=== PATIENT | female | born 1965 ===

== ENCOUNTER → 2018-10-22 20:54 | Outpatient (REF) | payer BC, SELFPAY ==
[2018-10-22 21:21] LABS: HEMOLYSIS < 15 (0-50)
[2018-10-22 21:24] LABS: Add Manual Diff / Slide Review NO; Basophils Absolute Auto 100 /uL (0-100); Basophils Percent Auto 1.6 % (0-2); Eosinophils Absolute Auto 100 /uL (0-450); Eosinophils Percent Auto 1.3 % (2-4); Hematocrit 32.9 % (36-46); Hemoglobin 9.9 g/dL (12.0-16.0); Lymphocytes Absolute Auto 1000 /uL (1100-4500); Mean Corpuscular Hemoglobin 17.3 PG (26-34); Mean Corpuscular Volume 57.7 fL (80-100); Monocytes Absolute Auto 400 /uL (0-900); Monocytes Percent Auto 6.4 % (3-14); Neutrophils Absolute Auto 4700 /uL (1500-7000); Neutrophils Percent Auto 74.7 % (50-75); Platelet Count 242 X10^3/uL (150-400); Red Blood Cell Count 5.71 X10^6/uL (4.0-5.2); Red Cell Distribution Width 18.1 % (11.6-14.8); White Blood Cell Count 6.4 X10^3/uL (4.5-11.0)
[2018-10-22 21:27] LABS: Alanine Aminotransferase 25 IU/L (9-52); Albumin Globulin Ratio 1.3 (1.0-2.8); Alkaline Phosphatase 64 U/L (38-126); Aspartate Aminotransferase 26 IU/L (14-36); BUN Creatinine Ratio 12.5 (6-22); Bilirubin Total 0.4 mg/dL (0.2-1.3); Blood Urea Nitrogen 10 mg/dL (7-17); Calcium 8.8 mg/dL (8.4-10.2); Carbon Dioxide 24 mmol/L (22-32); Chloride 105 mmol/L (98-107); Estimated Glomerular Filt Rate > 60.0 mL/min (>60); Glucose 77 mg/dL (70-100); Sodium 140 mmol/L (137-145)
[2018-10-22 21:58] LABS: TSH w/ Reflex to FT4 3.46 uIU/mL (0.47-4.68)
[2018-10-22 22:02] LABS: Ferritin 5.5 ng/mL (11.1-264)
[2018-10-22 22:08] LABS: Anisocytosis 2+; Hypochromasia 3+; Microcytosis 3+; Poikilocytosis 2+
[2018-10-22 22:34] LABS: Follicle Stimulating Hormone 4.12 mIU/mL; Luteinizing Hormone 4.91 mIU/mL
[2018-10-26 20:17] LABS: Progesterone 1.4 ng/mL
[2018-10-27 14:58] LABS: Estrogen 1162.2 pg/mL
[2018-10-31 13:49] LABS: Testosterone Free 1.7
[2018-10-31 13:50] LABS: Testosterone Total 25
== END ==
LOC: LAB 20:54
PROVIDERS: Visit Provider Naturopath
DX: D25.9 Leiomyoma of uterus, unspecified (principal); D50.9 Iron deficiency anemia, unspecified; R14.0 Abdominal distension (gaseous); K60.2 Anal fissure, unspecified; D56.3 Thalassemia minor; N92.4 Excessive bleeding in the premenopausal period; Z13.89 Encounter for screening for other disorder
CPT/HCPCS: 36415; 80053; 82672; 82728; 83001; 83002; 84144; 84402; 84403; 84443; 85025